=== PATIENT | female | born 1960 | race Caucasian/White ===

== ENCOUNTER 2020-05-29 11:07 | Emergency (ER) | payer MEDICARE, MEDICAID ==
[2020-05-29 11:22] VITALS: BP 157/102; PULSE 95
--- NOTE | 2020-05-29 14:01 | CT ---
DATE OF SERVICE: 05/29/2020 CLINICAL DATA: Pain Unenhanced abdomen and pelvic CT: Multi slice acquisition through the abdomen ad pelvis without IV, but with oral contrast was performed. No priors. The lung bases are clear. There are surgical changes involving the stomach. The unenhanced liver appears normal. No focal hepatic lesions. There is a small gallstone in the dependent gallbladder. No pericholecystic fluid. No biliary duct dilation. The spleen appears normal. The pancreas appears normal. The right and left adrenals appear normal. The right and left kidneys appear normal. No nephrocalcinosis or nephrolithiasis. No hydronephrosis or hydroureter. The bladder is partially fluid filled. It appears normal. Patient is status post hysterectomy. The appendix is not dilated. No evidence of appendicitis. There is diverticulosis of the descending and sigmoid colon. No evidence of diverticulitis. There is however mural thickening involving the cecum and ascending colon. There is also mural thickening involving the descending and sigmoid colon. Colitis should be considered. No free air. No free fluid. No dilated oops of bowel. No adenopathy. No aortic aneurysm. There is a fat containing umbilical hernia. There is a stimulator device located subcutaneously in the right flank region. The stimulator wire traverses the right sacrum and its distal tip lies adjacent to the piriformis muscle on the right. There is degenerative disc disease throughout the lumbar spine. No focal lytic or blastic bone lesions. MTDD
--- NOTE | 2020-05-29 17:48 | EDM.PDOC ---
ED HPI GENERAL MEDICAL PROBLEM - General Chief Complaint: General Stated Complaint: POSSIBLE HERNIA? Time Seen by Provider: 05/29/20 11:20 Source of Information: Reports: Patient History Limitations: Reports: No Limitations - History of Present Illness INITIAL COMMENTS - FREE TEXT/NARRATIVE: Patient is a 59 year old white female who states has had pain in left groin for past 24 days. Started 24 days ago after climbing stairs multiple times while staying at her brother's home. Pain is wore with going up stairs. Angella to walk with minimal difficulty. She denies any specific injury. Pain is worse with sitting Onset Date: 05/06/20 Duration: Week(s): (3 weeks ago) Location: Reports: Other (Left groin along medial aspect of left groin) Quality: Reports: Sharp Severity: Severe Improves with: Reports: Immobilization Worsens with: Reports: Other (Stairs. 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 Left Groin Pain Score (Numeric/FACES): 6 - Related Data Allergies Allergy/AdvReac Type Severity Reaction Status Date / Time No Known Allergies Allergy Verified 05/29/20 11:16 Home Meds: Home Meds Folic Acid 20 mg PO DAILY 09/24/13 [History] Lisinopril 5 mg PO DAILY 09/24/13 [History] Methotrexate [Rheumatrex] 25 mg PO WEEKLY 09/24/13 [History] Omeprazole 20 mg PO DAILY 09/24/13 [History] RX: Cyclobenzaprine [Flexeril] 10 mg PO ASDIRECTED 09/24/13 [History] RX: Naproxen [Naprosyn] 500 mg PO ASDIRECTED PRN 09/24/13 [History] atorvaSTATin [Lipitor] 40 mg PO BEDTIME 09/24/13 [History] oxyCODONE HCl [Oxycodone HCl] 5 mg PO ASDIRECTED PRN 09/24/13 [History] Aspirin [Low Dose Aspirin EC] 81 mg PO DAILY 11/13/13 [History] Calcium Carbonate [Calcium] 1,500 mg PO DAILY 02/06/15 [History] Cyanocobalamin (Vitamin B-12) [Vitamin B-12] 1,000 mcg SL DAILY 02/06/15 [History] Multivitamin with Minerals [Multiple Vitamin] 2 tab PO DAILY 02/06/15 [History] RX: Gabapentin [Neurontin] 300 mg PO BID 02/06/15 [History] Thiamine Mononitrate (Vit B1) [Vitamin B-1] 100 mg PO DAILY 02/06/15 [History] Past Medical History HEENT History: Reports: Impaired Vision Cardiovascular History: Reports: High Cholesterol, Hypertension Respiratory History: Reports: Other (See Below) Other Respiratory History: Pleurisy Gastrointestinal History: Reports: Other (See Below) Other Gastrointestinal History: hx of gastric bypass 2-3 yrs ago 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 parity: 1, gravity: 1 Musculoskeletal History: Reports: Back Pain, Chronic, Fibromyalgia, Osteoarthritis, RA Psychiatric History: Reports: Other (See Below) Other Psychiatric History: pt says that she has been crying alot latley. Oncologic (Cancer) History: Reports: None - Past Surgical History GI Surgical History: Reports: Hernia Repair/Other Social & Family History - Tobacco Use Smoking Status *Q: Unknown Ever Smoked - Caffeine Use Caffeine Use: Reports: Coffee - Recreational Drug Use Recreational Drug Use: No ED ROS GENERAL - Review of Systems Review Of Systems: See Below Constitutional: Denies: Fever, Chills, Malaise, Weakness Respiratory: Denies: Shortness of Breath, Cough Cardiovascular: Reports: Syncope. Denies: Chest Pain, Dyspnea on Exertion GI/Abdominal: Denies: Abdominal Pain, Diarrhea, Nausea, Vomiting ED EXAM, GENERAL - Physical Exam Exam: See Below Exam Limited By: No Limitations General Appearance: Alert, WD/WN, Mild Distress, Other (Pain with initially starting to walk) Neck: Normal Inspection, Supple, Non-Tender, Full Range of Motion Respiratory/Chest: No Respiratory Distress, Normal Breath Sounds Cardiovascular: Regular Rate, Rhythm, No Murmur GI/Abdominal: Normal Bowel Sounds, Soft, Non-Tender, No Distention, No Mass, Other (Groin wihtout palpable hernias . MIld tenerness in left inguinal region) (Female) Exam: Normal External Exam, Normal Speculum Exam, Normal Bimanual Exam Back Exam: Normal Inspection, Full Range of Motion Extremities: Normal Inspection, Normal Range of Motion, Non-Tender Course - Vital Signs Text/Narrative:: X ray of hip and pelvis obtained without evidence of fracture CT of abdomen and pelvis with some thickening of colon wall Patient advised to follow up with PMD concerning thickening of colon wall. No cause for patient's pain found on CAT scajn Last Recorded V/S: Last Vital Signs Temp 97.8 F 05/29/20 11:33 Pulse 95 05/29/20 11:33 Resp 18 05/29/20 11:33 BP 157/102 H 05/29/20 11:33 Pulse Ox 98 05/29/20 11:33 - Orders/Labs/Meds Orders: Active Orders 24 hr Category Date Time Status Hip Min 2V or 3V w Pelvis Lt [CR] Stat Exams 05/29/20 11:25 Taken Departure - Departure Time of Disposition: 14:00 Disposition: Home, Self-Care 01 Clinical Impression: Muscle strain - Discharge Information *PRESCRIPTION DRUG MONITORING PROGRAM REVIEWED*: Not Applicable *COPY OF PRESCRIPTION DRUG MONITORING REPORT IN PATIENT BRITTANY: Not Applicable Instructions: Muscle Pain, Adult, Muscle Strain, [id number] Referrals: PCP,None [Primary Care Provider] - Forms: ED Department Discharge Sepsis Event Note (ED) - Evaluation Sepsis Screening Result: No Definite Risk - Focused Exam Vital Signs: Vital Signs Temp Pulse Resp BP Pulse Ox 05/29/20 11:33 97.8 F 95 18 157/102 H 98 05/29/20 11:18 97 F 95 18 157/102 H 98 - My Orders Last 24 Hours: My Active Orders 05/29/20 11:25 Hip Min 2V or 3V w Pelvis Lt [CR] Stat - Assessment/Plan Last 24 Hours: My Active Orders 05/29/20 11:25 Hip Min 2V or 3V w Pelvis Lt [CR] Stat
--- NOTE | 2020-05-31 12:16 | CR ---
Date of Service: 05/29/20 Clinical Data: left groin /pelvic pain PELVIS AND LEFT HIP: There are mild osteoarthritic changes of both hip joints. There are degenerative changes involving the SI joints and symphysis pubis. There is a stimulator device overlying the right pelvis and sacrum. There are multiple calcifications in the pelvis that are most likely vascular. No acute abnormalities. No focal lytic or blastic bone lesions. [id number] [facility]
== END 2020-05-29 13:58 | disposition home or self-care (01) ==
LOC: LB.ED 11:07
DX: S39.011A Strain of muscle, fascia and tendon of abdomen, initial encounter (principal); I10 Essential (primary) hypertension; E78.00 Pure hypercholesterolemia, unspecified; Z79.82 Long term (current) use of aspirin; Z79.899 Other long term (current) drug therapy; X58.XXXA Exposure to other specified factors, initial encounter
CPT/HCPCS: 73502-LT; 74176; 99284-25

== ENCOUNTER 2020-11-29 10:52 | Emergency (ER) | payer MEDICARE, MEDICAID ==
--- NOTE | 2020-11-29 11:26 | EDM.PDOC ---
ED HPI GENERAL MEDICAL PROBLEM - General Chief Complaint: General Stated Complaint: Falls Time Seen by Provider: 11/29/20 11:15 Source of Information: Reports: Patient History Limitations: Reports: No Limitations - History of Present Illness INITIAL COMMENTS - FREE TEXT/NARRATIVE: h/o chronic low back and neck pain. Who presented to the ER due to difficulty ambulation and shooting pain in her back down to her legs. Patient has a chronic h/o lumbar spine disc disease for +20 years. Already on Oxycodone, Flexeril and Neurontin. Also a h/o fibromyalgia. Reports that she couldn't get out of her chair today due to pain./ Was able to ambulate without problems, but sometimes get a shooting pain from her back down to her legs. No incontinence. No weakness or numbness. Has used some of her oxycodone which helped. Her last CT of low back was several years ago. h/o bladder control wired device. Onset: Gradual Duration: Day(s): (2) Location: Reports: Back - Related Data Allergies Allergy/AdvReac Type Severity Reaction Status Date / Time No Known Allergies Allergy Verified 11/29/20 11:15 Home Meds: Home Meds Cyclobenzaprine [Flexeril] 10 mg PO ASDIRECTED 09/24/13 [History] Folic Acid 20 mg PO DAILY 09/24/13 [History] Methotrexate [Rheumatrex] 100 mg PO WEEKLY 09/24/13 [History] Naproxen [Naprosyn] 500 mg PO ASDIRECTED PRN 09/24/13 [History] Omeprazole 20 mg PO DAILY 09/24/13 [History] oxyCODONE HCl [Oxycodone HCl] 5 mg PO ASDIRECTED PRN 09/24/13 [History] Aspirin [Low Dose Aspirin EC] 81 mg PO DAILY 11/13/13 [History] Calcium Carbonate [Calcium] 1,500 mg PO DAILY 02/06/15 [History] Cyanocobalamin (Vitamin B-12) [Vitamin B-12] 1,000 mcg SL DAILY 02/06/15 [History] Gabapentin [Neurontin] 600 mg PO BID 02/06/15 [History] Multivitamin with Minerals [Multiple Vitamin] 2 tab PO DAILY 02/06/15 [History] Thiamine Mononitrate (Vit B1) [Vitamin B-1] 100 mg PO DAILY 02/06/15 [History] Past Medical History HEENT History: Reports: Impaired Vision Cardiovascular History: Reports: High Cholesterol, Hypertension Respiratory History: Reports: Other (See Below) Other Respiratory History: Pleurisy Gastrointestinal History: Reports: Other (See Below) Other Gastrointestinal History: hx of gastric bypass 2-3 yrs ago PHARMACOMETRICIAN History: Reports: , Other (See Below) Other PHARMACOMETRICIAN History: Hysterectomy. parity: 1, gravity: 1 Musculoskeletal History: Reports: Back Pain, Chronic, Fibromyalgia, Osteoarthritis, RA Psychiatric History: Reports: Other (See Below) Other Psychiatric History: pt says that she has been crying alot latley. Oncologic (Cancer) History: Reports: None - Past Surgical History HEENT Surgical History: Reports: LASIK Other Respiratory Surgeries/Procedures: oxygen at night GI Surgical History: Reports: Hernia Repair/Other Other Musculoskeletal Surgeries/Procedures:: RA Social & Family History - Caffeine Use Caffeine Use: Reports: Coffee ED ROS GENERAL - Review of Systems Review Of Systems: See Below Constitutional: Reports: No Symptoms HEENT: Reports: No Symptoms Respiratory: Reports: No Symptoms Cardiovascular: Reports: No Symptoms GI/Abdominal: Reports: No Symptoms Musculoskeletal: Reports: Back Pain, Muscle Stiffness Skin: Reports: No Symptoms Neurological: Reports: Difficulty Walking, Gait Disturbance. Denies: Trouble Speaking Psychiatric: Reports: Anxiety ED EXAM, GENERAL - Physical Exam Exam: See Below Exam Limited By: No Limitations General Appearance: Alert, WD/WN, No Apparent Distress Eye Exam: Bilateral Eye: EOMI, PERRL Respiratory/Chest: No Respiratory Distress, Lungs Clear, Normal Breath Sounds Cardiovascular: Normal Peripheral Pulses Back Exam: Normal Inspection, Decreased Range of Motion, Muscle Spasm Extremities: Normal Inspection, Normal Range of Motion, Limited Range of Motion (low back due to pain) Neurological: Alert, Oriented, CN II-XII Intact, No Motor/Sensory Deficits. No: Sensory/Motor Deficit Course - Vital Signs Last Recorded V/S: Last Vital Signs Temp 36.2 C 11/29/20 11:08 Pulse 90 11/29/20 12:25 Resp 16 11/29/20 12:25 BP 184/96 H 11/29/20 12:25 Pulse Ox 95 11/29/20 12:25 - Orders/Labs/Meds Orders: Active Orders 24 hr Category Date Time Status Lumbar Spine wo Cont [CT] Stat Exams 11/29/20 11:23 Taken Meds: Medications Discontinued Medications Generic Name Dose Route Start Last Admin Trade Name Alicia PRN Reason Stop Dose Admin Diazepam 5 mg 11/29/20 11:26 11/29/20 11:31 Valium. PO 11/29/20 11:27 5 mg ONETIME ONE Administration Diazepam Confirm 11/29/20 11:40 11/29/20 11:38 Valium. Administered 11/29/20 11:41 Not Given Dose 5 mg .ROUTE .STK-MED ONE Hydromorphone HCl 0.5 mg 11/29/20 13:35 11/29/20 13:51 Dilaudid IM 11/29/20 13:36 0.5 mg ONETIME ONE Administration Hydromorphone HCl Confirm 11/29/20 13:57 11/29/20 13:53 Dilaudid Administered 11/29/20 13:58 Not Given Dose 2 mg .ROUTE .STK-MED ONE Ketorolac Tromethamine Confirm 11/29/20 12:16 11/29/20 12:10 Toradol Administered 11/29/20 12:17 Not Given Dose 60 mg .ROUTE .STK-MED ONE Ketorolac Tromethamine 60 mg 11/29/20 12:08 11/29/20 12:10 Toradol IM 11/29/20 12:09 60 mg ONETIME ONE Administration Methylprednisolone Sodium Succinate 125 mg 11/29/20 11:25 11/29/20 11:37 Solu-Medrol IM 11/29/20 11:26 125 mg ONETIME ONE Administration Methylprednisolone Sodium Succinate Confirm 11/29/20 11:39 11/29/20 11:38 Solu-Medrol Administered 11/29/20 11:40 Not Given Dose 125 mg .ROUTE .STK-MED ONE - Re-Assessments/Exams Free Text/Narrative Re-Assessment/Exam: IM solumedrol was given concerns for a pinched nerve or worsening disc disease. CT lumbar wo contrast was obtained - showed multiple levels of DJD, L2-L3, L3- L4, as well as, L4-L5. Pain was further controlled with IM Dilaudid. Reports easier to move around in the ER. Ambulating to and from the bathroom without problems. Will d/c home on a walker. Continue Oxycodone as before - she already has some left over at home. Departure - Departure Time of Disposition: 14:42 Disposition: Home, Self-Care 01 Condition: Good Clinical Impression: Lumbar back pain with radiculopathy affecting left lower extremity, Acute exacerbation of chronic low back pain, Sciatica of left side - Discharge Information *PRESCRIPTION DRUG MONITORING PROGRAM REVIEWED*: Not Applicable *COPY OF PRESCRIPTION DRUG MONITORING REPORT IN PATIENT BRITTANY: Not Applicable Referrals: Khoi Fontenot MD [Primary Care Provider] - Forms: ED Department Discharge Additional Instructions: - continue pain medications as before - follow up with your PCP clinic to discuss further physical therapy and chiropractor treatment - use walker as needed for ambulation to prevent falling Sepsis Event Note (ED) - Evaluation Sepsis Screening Result: No Definite Risk - Focused Exam Vital Signs: Vital Signs Temp Pulse Resp BP BP Pulse Ox 11/29/20 12:25 90 16 184/96 H 95 11/29/20 11:08 36.2 C 85 16 185/101 H 95 - Problem List & Annotations (1) Acute exacerbation of chronic low back pain SNOMED Code(s): 578219266 Code(s): M54.5 - LOW BACK PAIN; G89.29 - OTHER CHRONIC PAIN Status: Acute Priority: Medium Current Visit: Yes (2) Lumbar back pain with radiculopathy affecting left lower extremity SNOMED Code(s): 621332442, 971041992, 613788896 Code(s): M54.16 - RADICULOPATHY, LUMBAR REGION Status: Acute Priority: Medium Current Visit: Yes (3) Sciatica of left side SNOMED Code(s): 78011240 Code(s): M54.32 - SCIATICA, LEFT SIDE Status: Acute Priority: Medium Current Visit: Yes - Problem List Review Problem List Initiated/Reviewed/Updated: Yes - My Orders Last 24 Hours: My Active Orders 11/29/20 11:23 Lumbar Spine wo Cont [CT] Stat - Assessment/Plan Last 24 Hours: My Active Orders 11/29/20 11:23 Lumbar Spine wo Cont [CT] Stat Plan: - continue pain medications as before - follow up with your PCP clinic to discuss further physical therapy and chiropractor treatment - use walker as needed for ambulation to prevent falling
[2020-11-29] MEDS: Diazepam 5 MG Tab PO ONE (11:31)
[2020-11-29] MEDS: methylPREDNISolone Sodium Succinate 125 MG/2 ML SDV IM ONE (11:37)
[2020-11-29] MEDS: Diazepam 5 MG Tab ONE (11:38)
[2020-11-29] MEDS: methylPREDNISolone Sodium Succinate 125 MG/2 ML SDV ONE (11:38)
[2020-11-29] MEDS: Ketorolac 60 MG/2 ML SDV IM ONE (12:10)
[2020-11-29] MEDS: Ketorolac 60 MG/2 ML SDV ONE (12:10)
[2020-11-29 12:27] VITALS: BP 184/96; PULSE 90
[2020-11-29] MEDS: HYDROmorphone 2 MG/ML SDV IM ONE (13:51)
[2020-11-29] MEDS: HYDROmorphone 2 MG/ML SDV ONE (13:53)
--- NOTE | 2020-11-30 08:35 | CT ---
Date of Service: 11/29/20 Clinical Data: falls, lower leg weakness. h/o L5 disc LUMBAR SPINE CT: Multislice axial acquisition from T11 to S4 was performed. Axial images and sagittal and coronal reformations are reviewed. The vertebral bodies are of average height and in good alignment. No acute fracture or dislocation. No lytic or blastic bone lesions. There are disk margin spurs throughout the lumbar spine with disk space narrowing diffusely. There is annular bulging of the L1-2 disk. No significant central or foraminal stenosis. There is annular bulging of the L3-4 disk. There is mild facet joint and ligamentum flavum hypertrophy at this level. There is mild central spinal stenosis and mild neural foramen stenosis bilaterally. There is annular bulging of the L4-5 disk. There is facet joint and ligamentum flavum hypertrophy at this level. There is mild central and mild neural foramen stenosis bilaterally. There is annular bulging of the L5-S1 disk with a hard disk protrusion that is central and posterolateral on the right. It does contact the right S1 nerve root. There is facet joint hypertrophy at this level. There is mild neural foramen stenosis bilaterally. No other disk abnormalities. There are surgical changes involving the stomach. No other significant findings. [id number] [facility]
== END 2020-11-29 14:10 | disposition home or self-care (01) ==
LOC: LB.ED 10:52
DX: M54.16 Radiculopathy, lumbar region (principal); M54.42 Lumbago with sciatica, left side; I10 Essential (primary) hypertension; M06.9 Rheumatoid arthritis, unspecified; Z79.82 Long term (current) use of aspirin; Z79.899 Other long term (current) drug therapy
CPT/HCPCS: 72131; 96372; 99283; 99283-25; A9270-GY; J1170; J1885; J2930

== ENCOUNTER 2021-06-14 09:54 | Emergency (ER) | payer MEDICARE, MEDICAID ==
[2021-06-14 10:20] VITALS: BP 166/101; PULSE 80
--- NOTE | 2021-06-14 10:25 | EDM.PDOC ---
ED HPI GENERAL MEDICAL PROBLEM - General Chief Complaint: General Stated Complaint: hives Time Seen by Provider: 06/14/21 10:10 - History of Present Illness INITIAL COMMENTS - FREE TEXT/NARRATIVE: Itchy red rash on both lower legs. Started last evening, but getting worse today. No SOB, Wheezing, sneezing, or coughing. She does not feel sick. She did use OTC cortisone and Benadryl today without much relief. Hx of a similar condition in April. Location: Reports: Lower Extremity, Left, Lower Extremity, Right - Related Data Allergies Allergy/AdvReac Type Severity Reaction Status Date / Time No Known Allergies Allergy Verified 11/29/20 11:15 Home Meds: Home Meds Cyclobenzaprine [Flexeril] 10 mg PO ASDIRECTED 09/24/13 [History] Folic Acid 20 mg PO DAILY 09/24/13 [History] Methotrexate [Rheumatrex] 100 mg PO WEEKLY 09/24/13 [History] Naproxen [Naprosyn] 500 mg PO ASDIRECTED PRN 09/24/13 [History] Omeprazole 20 mg PO DAILY 09/24/13 [History] oxyCODONE HCl [Oxycodone HCl] 5 mg PO ASDIRECTED PRN 09/24/13 [History] Aspirin [Low Dose Aspirin EC] 81 mg PO DAILY 11/13/13 [History] Calcium Carbonate [Calcium] 1,500 mg PO DAILY 02/06/15 [History] Cyanocobalamin (Vitamin B-12) [Vitamin B-12] 1,000 mcg SL DAILY 02/06/15 [History] Gabapentin [Neurontin] 600 mg PO BID 02/06/15 [History] Multivitamin with Minerals [Multiple Vitamin] 2 tab PO DAILY 02/06/15 [History] Thiamine Mononitrate (Vit B1) [Vitamin B-1] 100 mg PO DAILY 02/06/15 [History] predniSONE [Prednisone] 20 mg PO BID #10 tablet 11/29/20 [Rx] Past Medical History HEENT History: Reports: Impaired Vision Cardiovascular History: Reports: High Cholesterol, Hypertension Respiratory History: Reports: Other (See Below) Other Respiratory History: Pleurisy Gastrointestinal History: Reports: Other (See Below) Other Gastrointestinal History: hx of gastric bypass 2-3 yrs ago Genitourinary History: Reports: Other (See Below) Other Genitourinary History: bladder pacemaker 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 parity: 1, gravity: 1 Musculoskeletal History: Reports: Back Pain, Chronic, Fibromyalgia, Osteoarthritis, RA Psychiatric History: Reports: Other (See Below) Other Psychiatric History: pt says that she has been crying alot latley. Oncologic (Cancer) History: Reports: None - Infectious Disease History Infectious Disease History: Reports: Chicken Pox - Past Surgical History HEENT Surgical History: Reports: LASIK Other Respiratory Surgeries/Procedures: oxygen at night GI Surgical History: Reports: Hernia Repair/Other Other Musculoskeletal Surgeries/Procedures:: RA Social & Family History - Caffeine Use Caffeine Use: Reports: Coffee ED ROS GENERAL - Review of Systems Review Of Systems: Comprehensive ROS is negative, except as noted in HPI. Skin: Reports: Pruritis, Rash, Erythema ED EXAM, GENERAL - Physical Exam Exam: See Below Skin Exam: Other (She has multiple red slihjtly raised lesions about 1/2 to 1 CM in size, Diffusely on both lower legs. No blisters, pustules, or scabs. The rash clears up where she has clothing and it spares her face and neck. I do see 2 lesions on her left forearm.) Course - Vital Signs Last Recorded V/S: Last Vital Signs Temp 97.0 F 06/14/21 10:15 Pulse 80 06/14/21 10:15 Resp 16 06/14/21 10:15 BP 166/101 H 06/14/21 10:15 Pulse Ox 99 06/14/21 10:15 - Orders/Labs/Meds Meds: Medications Discontinued Medications Generic Name Dose Route Start Last Admin Trade Name Alicia PRN Reason Stop Dose Admin Methylprednisolone Sodium Succinate Confirm 06/14/21 10:21 Methylprednisolone Sodium Succinate 125 Mg/2 Ml Sdv Administered 06/14/21 10:22 Dose 125 mg .ROUTE .STK-MED ONE Departure - Departure Time of Disposition: 10:20 Disposition: Home, Self-Care 01 Condition: Good Clinical Impression: Urticaria of unknown origin - Discharge Information *PRESCRIPTION DRUG MONITORING PROGRAM REVIEWED*: Not Applicable *COPY OF PRESCRIPTION DRUG MONITORING REPORT IN PATIENT BRITTANY: Not Applicable Instructions: Hives Referrals: Isaac Randall MD [Primary Care Provider] - Additional Instructions: She is to use Benadryl for 2-3 days. Prednisone will be given PO for 4 days. Take in the evening. She can use Topical OTC Cortisone that she has been using as needed. Follow up if her condition should get worse. She may need Allergy testing soon. Sepsis Event Note (ED) - Evaluation Sepsis Screening Result: No Definite Risk - Focused Exam Vital Signs: Vital Signs Temp Pulse Resp BP Pulse Ox 06/14/21 10:15 97.0 F 80 16 166/101 H 99
[2021-06-14] MEDS: methylPREDNISolone Sodium Succinate 125 MG/2 ML SDV IM ONE (10:30)
[2021-06-14] MEDS: methylPREDNISolone Sodium Succinate 125 MG/2 ML SDV ONE (10:30)
== END 2021-06-14 10:37 | disposition home or self-care (01) ==
LOC: LB.ED 09:54
DX: L50.9 Urticaria, unspecified (principal); I10 Essential (primary) hypertension; Z79.82 Long term (current) use of aspirin; Z79.899 Other long term (current) drug therapy
CPT/HCPCS: 96372; 99282; J2930

== ENCOUNTER 2022-03-04 19:06 | Emergency (ER) | payer MEDICARE, MEDICAID ==
[2022-03-04 19:14] VITALS: BP 140/98; PULSE 98
[2022-03-04] MEDS ORDERED: Mupirocin Oint 22 GM Tube ONE (19:45)
== END 2022-03-04 19:51 | disposition home or self-care (01) ==
LOC: LB.ED 19:06
DX: S30.811A Abrasion of abdominal wall, initial encounter (principal); E78.00 Pure hypercholesterolemia, unspecified; I10 Essential (primary) hypertension; Z90.710 Acquired absence of both cervix and uterus; Z79.899 Other long term (current) drug therapy; Z79.82 Long term (current) use of aspirin; X58.XXXA Exposure to other specified factors, initial encounter
CPT/HCPCS: 99282; A9270

== ENCOUNTER 2023-07-24 03:53 | Emergency (ER) | payer MEDICARE, MEDICAID ==
[2023-07-24 04:11] VITALS: BP 108/98; PULSE 104
[2023-07-24 04:37] LABS: BASOPHILS ABSOLUTE AUTO 0.03 K/uL (0.02-0.10); BASOPHILS PERCENT AUTO 0.4 % (0.0-0.5); EOSINOPHILS ABSOLUTE AUTO 0.31 K/uL (0.04-0.40); EOSINOPHILS PERCENT AUTO 3.6 % (1.0-5.0); HEMATOCRIT 44.5 % (37.0-47.0); HEMOGLOBIN 14.9 g/dL (11.5-16.5); LYMPHOCYTES ABSOLUTE AUTO 2.14 K/uL (1.50-4.00); MEAN CORPUSCULAR HEMOGLOBIN 30.2 pg (27.0-32.0); MEAN CORPUSCULAR HGB CONC 33.5 g/dL (31.0-35.0); MEAN CORPUSCULAR VOLUME 90 fL (76-96); MONOCYTES ABSOLUTE AUTO 0.81 K/uL (0.20-0.80); MONOCYTES PERCENT AUTO 9.5 % (3.0-10.0); NEUTROPHILS ABSOLUTE AUTO 5.27 K/uL (2.00-7.50); NEUTROPHILS PERCENT AUTO 61.5 % (45.0-70.0); PLATELET COUNT,PLT 417 K/uL (150-500); RED BLOOD CELL COUNT 4.93 M/uL (3.80-5.80); RED CELL DISTRIBUTION WIDTH 13.3 % (11.0-16.0); WHITE BLOOD CELL COUNT,WBC 8.6 K/uL (4.0-11.0)
[2023-07-24 04:39] LABS: APPEARANCE,URINE CLEAR (CLEAR); BILIRUBIN,URINE NEGATIVE (NEGATIVE); COLOR,URINE YELLOW; GLUCOSE,URINE 100 mg/dL (NEGATIVE); KETONES,URINE NEGATIVE (NEGATIVE); LEUKOCYTE ESTERASE,URINE MODERATE (NEGATIVE); NITRITE,URINE NEGATIVE (NEGATIVE); OCCULT BLOOD,URINE TRACE-INTACT (NEGATIVE); PH,URINE 6.5 (5.0-8.0); PROTEIN,URINE NEGATIVE (NEGATIVE); UROBILINOGEN,URINE 0.2 E.U./dL (0.2-1.0)
[2023-07-24 04:44] LABS: EPITHELIAL CELLS,URINE OCCASIONAL /HPF; WBC,URINE 20-30 /HPF
[2023-07-24 04:45] LABS: AMPHETAMINES SCREEN, URINE NEGATIVE (NEGATIVE); BARBITURATE SCREEN,URINE NEGATIVE (NEGATIVE); BENZODIAZEPINES SCREEN,URINE POSITIVE (NEGATIVE); METHADONE SCREEN, URINE NEGATIVE (NEGATIVE); METHAMPHETAMINES SCREEN, URINE NEGATIVE (NEGATIVE); OXYCODONE SCREEN,URINE NEGATIVE (NEGATIVE); THC SCREEN,URINE 50 NG/ML NEGATIVE (NEGATIVE)
[2023-07-24 05:18] LABS: ALBUMIN 3.7 g/dL (3.4-5.0); BILIRUBIN TOTAL 0.5 mg/dL (0.0-1.0); BUN/CREATININE RATIO 15.6 (6-25); CALCIUM 9.4 mg/dL (8.5-10.1); CARBON DIOXIDE,CO2 25.4 mmol/L (21.0-32.0); CREATININE 0.77 mg/dL (0.55-1.02); EST CRCL DRUG DOSING (CG) 66.25 mL/min; POTASSIUM,K 3.4 mmol/L (3.5-5.1); PROTEIN TOTAL,TP 7.4 g/dL (6.4-8.2)
== END 2023-07-24 05:45 | disposition home or self-care (01) ==
LOC: LB.ED 03:53
DX: T50.905A Adverse effect of unspecified drugs, medicaments and biological substances, initial encounter (principal); F10.10 Alcohol abuse, uncomplicated; E78.00 Pure hypercholesterolemia, unspecified; I10 Essential (primary) hypertension; Z79.82 Long term (current) use of aspirin; Z79.899 Other long term (current) drug therapy
CPT/HCPCS: 36415; 70450; 80053; 80307; 81001; 84484; 85025; 93005; 99284; A0425; A0429

== ENCOUNTER 2025-04-02 08:25 | Day surgery (SDC) | payer MEDICARE, MEDICAID ==
[~2025-04-02 08:25] MED LIST: Metoclopramide 10 MG/2 ML SDV IV PRN
[2025-04-02] MEDS: Sodium Chloride 0.9% 1,000 ML IV SCH (09:17)
[2025-04-02] MEDS ORDERED: Propofol 500 MG/50 ML SDV ONE (10:00)
[2025-04-02 10:46] VITALS: BP 115/71; PULSE 72
== END 2025-04-02 11:33 | disposition home or self-care (01) ==
LOC: LB.SDS 08:25
PROVIDERS: ATTEND Surgery
DX: Z12.11 Encounter for screening for malignant neoplasm of colon (principal); D12.0 Benign neoplasm of cecum; K63.5 Polyp of colon; K57.30 Diverticulosis of large intestine without perforation or abscess without bleeding; I10 Essential (primary) hypertension; K21.9 Gastro-esophageal reflux disease without esophagitis; I25.10 Atherosclerotic heart disease of native coronary artery without angina pectoris; Z79.899 Other long term (current) drug therapy
CPT/HCPCS: 45385; J2704; J7030

== ENCOUNTER 2025-05-07 21:21 | Emergency (ER) | payer MEDICARE, MEDICAID ==
[2025-05-07] MEDS ORDERED: Hydrocortisone/Neomycin/Polymyxin B Otic Soln 10 ML Bottle ONE (21:45)
[2025-05-07] MEDS ORDERED: Amoxicillin/Clavulanate K 875-125 MG Tab ONE (21:45)
[2025-05-07 22:58] VITALS: BP 169/85; PULSE 836
== END 2025-05-07 21:57 | disposition home or self-care (01) ==
LOC: LB.ED 21:21
DX: H66.003 Acute suppurative otitis media without spontaneous rupture of ear drum, bilateral (principal); H61.23 Impacted cerumen, bilateral; I10 Essential (primary) hypertension; E78.00 Pure hypercholesterolemia, unspecified; K21.9 Gastro-esophageal reflux disease without esophagitis; M19.90 Unspecified osteoarthritis, unspecified site; Z79.82 Long term (current) use of aspirin; Z79.899 Other long term (current) drug therapy
CPT/HCPCS: 69209; 99282-25; 99283; A9270-GY